=== PATIENT | male | born 1980 | race Caucasian/White ===

== ENCOUNTER 2016-08-08 14:49 | Emergency (ER) | payer OTHER ==
[~2016-08-08] VITALS: Ht 165.1 cm; Wt 69.5 kg
[2016-08-08 14:53] VITALS: Ht 165.1 cm; Wt 69.5 kg
[2016-08-08] MEDS ORDERED: DIPHTH/TET/ACEL PERTUSS (ADULT) 0.5 ML VIAL IM* ONE (15:30)
[2016-08-08] MEDS ORDERED: NAPR-260 PO (15:48)
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
[2016-08-08 16:01] VITALS: BP 126/74; PULSE 71; RESP 18; TEMP 98.3
== END 2016-08-08 16:01 | disposition home or self-care (01) ==
LOC: FTE 14:49
DX: T65.891A Toxic effect of other specified substances, accidental (unintentional), initial encounter (principal); F17.210 Nicotine dependence, cigarettes, uncomplicated; T22.53 Corrosion of first degree of upper arm; T20.50XA Corrosion of first degree of head, face, and neck, unspecified site, initial encounter; X58.XXXA Exposure to other specified factors, initial encounter; Y92.9 Unspecified place or not applicable; Z23 Encounter for immunization
CPT/HCPCS: 90471; 90715